=== PATIENT | female | born 1975 | race African-American/Black ===

== ENCOUNTER 2017-04-29 08:38 | Emergency (ER) | payer MEDICAID, OTHER ==
--- NOTE | 2017-04-29 08:52 | ED Physician Chart ---
ED Chief Complaint/HPI - Patient Information Date Seen:: 04/29/17 Time Seen:: 08:46 Chief Complaint:: Suprapubic pain for 3 days. History of Present Illness:: Pt came in by private auto for the above reason. Pain is characterized as constant, characterized as throbbing and sharp, and localized at suprapubic area . No known aggravating or relieving factors. No fever. Transient N/V with vomitus consists of gastric content. No hematemesis. Last BM yesterday evening, which was normal in color/consistency. No hematochezia or melena. No gross hematuria, dysuria, urgency or frequency with urination. No vaginal bleeding or discharge. Pt had Tylenol at about 0500 today that did not relieve much of her pain. Pt denies use of any NSAID's. Allergies:: Hydromorphone. Historian:: Patient Family MD/PCP:: Unknown LMP:: LNMP about 7 months ago. Review:: Nurse's Note Reviewed ED Review of Systems - Review of Systems General/Constitutional: No fever, No chills, No weight loss, No weakness Skin: No skin lesions, No rash, No bruising Head: No headache, Light headed Eyes: No loss of vision, No pain, No diplopia ENT: No earache, No nasal drainage, No sore throat Neck: No neck pain, No swelling, No mass noted Cardio Vascular: No chest pain, No palpitations, No edema Pulmonary: No SOB, No cough, No wheezing GI: Vomiting (transient), Pain (see HPI.), No melena, No hematochezia, No constipation, No hematemesis G/U: No dysuria, No frequency, No hematuria Medical Transcription Radiology: No vaginal discharge, No abnormal vaginal bleed Musculoskeletal: No bone or joint pain, No back pain Endocrine: No polyuria, No polydipsia Psychiatric: No prior psych history, No depression, No anxiety Hematopoietic: No bruising, No lymphadenopathy Allergic/Immuno: No urticaria, No angioedema Neurological: No syncope, No focal symptoms, No weakness, No headache, No confusion ED Past Medical History - Past Medical History Past Medical History: HTN Family History: HTN (father) Social History: Non Smoker, No Alcohol, Illicit Drug Use (occasional marijuana use. Pt has been informed about health risks associated with marijuana use and has been advised to stop. Pt acknowledges understanding.), Single, Employed, Other (significant others.) Surgical History: None Psychiatricy History: None Medication: Reviewed Family Medical History - Family Member Father Ethnicity: Non- Hx Family Hypertension: Yes ED Physical Exam - Physical Examination General/Constitutional: Awake, Well-developed, well-nourished, Alert, GCS 15, Non-toxic appearing, Ambulatory Other Gen/Cons comments:: Breathes comfortably, speaks clearly, ambulates and interacts normally. Pt appears to be in mild to moderate distress due to pain. Head: Atraumatic Eyes: Lids, conjuctiva normal, PERRL, EOMI Skin: Nl inspection, No rash, No skin lesions, No ecchymosis, Well hydrated, No lymphadenopathy ENMT: External ears, nose nl, Nasal exam nl, Oropharynx nl Neck: Nontender, Full ROM w/o pain, No JVD, No nuchal rigidity, No mass, No stridor Respiratory: Nl effort/Exclusion, Clear to Auscultation, No Wheeze/Rhonchi/Rales Cardio Vascular: RRR, No murmur, gallop, rubs GI: No organomegaly, No hernia, Normal BS's, Nondistended, No mass/bruits, No McBurney tenderness Other GI comments:: Obese. Tenderness at suprapubic region. No R/G. : No CVA tenderness Extremities: No tenderness or effusion, Full ROM, normal strength in all extremities, No edema, Normal digits & nails Neuro/Psych: Alert/oriented (oriented x 3), Judgement/insight normal, Mood normal, Normal gait, No focal deficits ED Labs/Radiology/EKG Results - Lab Results Results: Laboratory Tests 04/29/17 04/29/17 04/29/17 08:55 08:55 09:42 WBC 6.7 RBC 3.60 L Hgb 13.3 Hct 40.4 MCV 112.3 H MCH 37.1 H MCHC Differential 33.0 RDW 13.0 Plt Count 319 MPV 7.0 Neutrophils (Manual) 50 Lymphocytes 36 Monocytes 12 H Eosinophils 2 Platelet Estimate ADEQUATE Platelet Morphology NORMAL Macrocytosis 2+ RBC Morph Micro Appear ABNORMAL PT INR PTT (Actin FS) Sodium Potassium Chloride Carbon Dioxide Anion Gap BUN Creatinine Est GFR ( Amer) Est GFR (Non-Af Amer) BUN/Creatinine Ratio Glucose Calcium Total Bilirubin AST ALT Alkaline Phosphatase Creatine Kinase Troponin I Total Protein Albumin Globulin Albumin/Globulin Ratio Urine Source MIDSTREAM Urine Color YELLOW Urine Clarity SL. CLOUDY Urine pH 6.0 Ur Specific [place] 1.025 Urine Protein TRACE Urine Glucose (UA) NEGATIVE Urine Ketones NEGATIVE Urine Blood TRACE Urine Nitrate NEGATIVE Urine Bilirubin NEGATIVE Urine Urobilinogen 0.2 Ur Leukocyte Esterase NEGATIVE Urine RBC 0-2 Urine WBC 0-2 Ur Epithelial Cells MODERATE Urine Bacteria MODERATE Urine Test NEGATIVE 04/29/17 04/29/17 04/29/17 09:42 09:42 09:42 WBC RBC Hgb Hct MCV MCH MCHC Differential RDW Plt Count MPV Neutrophils (Manual) Lymphocytes Monocytes Eosinophils Platelet Estimate Platelet Morphology Macrocytosis RBC Morph Micro Appear PT 9.5 INR 0.91 PTT (Actin FS) 27.2 Sodium 131 L Potassium 3.5 Chloride 108 H Carbon Dioxide 16.6 L Anion Gap 9.9 BUN 12 Creatinine 0.8 Est GFR ( Amer) > 60.0 Est GFR (Non-Af Amer) > 60.0 BUN/Creatinine Ratio 15.0 Glucose 102 Calcium 9.4 Total Bilirubin 0.3 AST 14 ALT 11 Alkaline Phosphatase 59 Creatine Kinase 119 Troponin I Total Protein 8.2 Albumin 4.7 Globulin 3.5 Albumin/Globulin Ratio 1.3 Urine Source Urine Color Urine Clarity Urine pH Ur Specific [place] Urine Protein Urine Glucose (UA) Urine Ketones Urine Blood Urine Nitrate Urine Bilirubin Urine Urobilinogen Ur Leukocyte Esterase Urine RBC Urine WBC Ur Epithelial Cells Urine Bacteria Urine Test 04/29/17 09:42 WBC RBC Hgb Hct MCV MCH MCHC Differential RDW Plt Count MPV Neutrophils (Manual) Lymphocytes Monocytes Eosinophils Platelet Estimate Platelet Morphology Macrocytosis RBC Morph Micro Appear PT INR PTT (Actin FS) Sodium Potassium Chloride Carbon Dioxide Anion Gap BUN Creatinine Est GFR ( Amer) Est GFR (Non-Af Amer) BUN/Creatinine Ratio Glucose Calcium Total Bilirubin AST ALT Alkaline Phosphatase Creatine Kinase Troponin I 0.03 Total Protein Albumin Globulin Albumin/Globulin Ratio Urine Source Urine Color Urine Clarity Urine pH Ur Specific [place] Urine Protein Urine Glucose (UA) Urine Ketones Urine Blood Urine Nitrate Urine Bilirubin Urine Urobilinogen Ur Leukocyte Esterase Urine RBC Urine WBC Ur Epithelial Cells Urine Bacteria Urine Test - EKG Interpretations EKG Time:: 09:47 Rate & Rhythm: Sinus tachycardia with VR 105 Comments:: NSSTT changes. ED Septic Shock - . Is Septic Shock (SBP<90, OR Lactate>4 mmol\L) present?: No ED Reassessment (Disposition) - Reassessment Reassessment:: 1055 Pt has been repeatedly evaluated. Pt remains stable and is pending to have pelvic sonogram. Pt is alert and oriented x 3. Pt decides to leave AMA and does not want further observation/management in hospital. Indications and benefits for further in-hospital care, related risks, including risks for leaving AMA have been well explained. Pt acknowledges understanding but still decides to leave AMA. Pt has signed AMA form, witnessed by my nurse Mr. Dewayne Turpin. Pt has been explained that if she changes her mind, she is welcomed to return anytime. Pt again acknowledges understanding and appreciates our effort in caring for her. - Diagnosis Diagnosis:: Suprapubic pain of unknown etiology. Stable. HTN, poorly controlled. - Patient Disposition Discharge/Transfer:: Against Medical Advice Time:: 10:50 Condition at Disposition:: Stable ED Discharge Plan - Patient Disposition Admit/Discharge/Transfer: AGAINST MEDICAL ADVICE Condition at Disposition: Unchanged
[2017-04-29 09:13] LABS: URINE BILIRUBIN NEGATIVE (NEGATIVE); URINE BLOOD TRACE (NEGATIVE); URINE GLUCOSE (UA) NEGATIVE (NEGATIVE); URINE KETONE NEGATIVE (NEGATIVE); URINE PROTEIN TRACE mg/dL (NEGATIVE); URINE UROBILINOGEN 0.2 E.U./dL (0.2 - 1.0)
[2017-04-29 09:14] LABS: URINE COLOR YELLOW
[2017-04-29 09:17] LABS: URINE BACTERIA MODERATE /hpf (NONE SEEN); URINE EPITHELIAL CELLS MODERATE /lpf (FEW); URINE RBC 0-2 /hpf (0-5); URINE WBC 0-2 /hpf (0-5)
[2017-04-29 10:05] LABS: INR 0.91 (0.5-1.4); PROTHROMBIN TIME (TEST) 9.5 SECONDS (9.5-11.5)
[2017-04-29 10:09] LABS: ALB/GLOB RATIO 1.3 (1.0-1.8); ALKALINE PHOSPHATASE 59 U/L (34-104); ANION GAP 9.9 (7.0-16.0); BILIRUBIN,TOTAL 0.3 mg/dL (0.3-1.0); BUN - UREA NITROGEN 12 mg/dL (7-25); CALCIUM SERUM 9.4 mg/dL (8.6-10.3); CARBON DIOXIDE 16.6 mEq/L (21.0-31.0); CHLORIDE 108 mEq/L (98-107); CREATININE - SERUM 0.8 mg/dL (0.6-1.2); GLUCOSE 102 mg/dL (70-105); POTASSIUM SERUM 3.5 mEq/L (3.5-5.1); SGOT 14 U/L (13-39); SGPT/ALT 11 U/L (7-52); SODIUM SERUM 131 mEq/L (136-145)
[2017-04-29 10:12] LABS: HEMATOCRIT 40.4 % (35.0-45.0); HEMOGLOBIN 13.3 gm/dL (11.7-15.5); MEAN CORPUSCULAR HEMOGLOBIN 37.1 pg (27.0-31.0); PLATELET COUNT 319 Th/cmm (150-400); WHITE BLOOD COUNT 6.7 Th/cmm (4.8-10.8)
[2017-04-29 10:15] LABS: MEAN CELL VOLUME 112.3 fl (81-100)
[2017-04-29 10:34] LABS: EOSINOPHIL 2 % (0-5); NEUTROPHILS 50 % (40-80); TOTAL CELLS COUNTED 100
[2017-04-29 10:35] LABS: PLATELET ESTIMATE ADEQUATE (NORMAL); PLATELET MORPHOLOGY NORMAL (NORMAL)
== END 2017-04-29 10:59 | disposition left against medical advice (07) ==
LOC: ER 08:38
DX: R10.30 Lower abdominal pain, unspecified (principal); I10 Essential (primary) hypertension
CPT/HCPCS: 99285; 96374; 93005; 84484; 36415; 85007; 85027; 85610; 81001; 82550; 81025; 80053; J1885; Z7610